=== PATIENT | female | born 1955 | race Caucasian/White ===

== ENCOUNTER 2018-10-28 12:14 | Day surgery (SDC) | payer OTHER ==
[~2018-10-28] VITALS: Ht 167.6 cm; Wt 113.7 kg
[2018-10-28 13:49] VITALS: Ht 167.6 cm; Wt 113.7 kg
[2018-10-28] MEDS ORDERED: GLUC100015 PO (14:00)
[2018-10-28] MEDS ORDERED: OMEP40CA6 PO (14:00)
[2018-10-28] MEDS ORDERED: MIRA50TA PO (14:00)
[2018-10-28] MEDS ORDERED: BENA40TA56 PO (14:00)
[2018-10-28] MEDS ORDERED: HYDR25TA6 PO (14:00)
[2018-10-28] MEDS ORDERED: GABA300C16 PO (14:00)
[2018-10-28] MEDS ORDERED: TURM500C9 PO (14:03)
[2018-10-28] MEDS ORDERED: TRA100 PO (14:03)
[2018-10-28] MEDS ORDERED: BIOT5000 PO (14:03)
[2018-10-28] MEDS ORDERED: FOLI-49 PO (14:03)
[2018-10-28] MEDS ORDERED: vit d3 PO (14:03)
[2018-10-28] MEDS ORDERED: NITR-58 PO (14:03)
[2018-10-28] MEDS ORDERED: SERT-165 PO (14:03)
[2018-10-28] MEDS ORDERED: GABA-526 PO (14:03)
[2018-10-28] MEDS ORDERED: FERR256T PO (14:03)
[2018-10-28] MEDS ORDERED: SULI150T PO (14:03)
[2018-10-28] MEDS ORDERED: PROPOFOL 60 ML ONE (14:23)
[2018-10-28] MEDS ORDERED: LIDOCAINE 2% (SDV) 5 ML INJ ONE (14:23)
--- NOTE | 2018-10-28 14:23 | PREAC ---
Date/Time of Note Date/Time of Note DATE: 10/28/18 TIME: 14:20 Anesthesia Eval and Record Evaluation Time Pre-Procedure Interview DATE: 10/28/18 TIME: 14:20 Age 63 Sex female NPO: 8 hrs Preoperative diagnosis blood in stool Planned procedure colonoscopy Past Medical History Past Medical History: Includes Cardio: HTN, Dyslipidemia Musculoskeletal: Osteoarthritis GI: GERD, Morbid obesity Surgery & Anesthesia Issues No known issue Meds Anticoagulation: No Beta Victor Hugo within 24 hr: No Reason Beta Victor Hugo not given: Pt. not on B-Victor Hugo Reported Medications Nitrofurantoin Monohyd Macrocr* (Macrobid*) 100 Mg Capsr, 100 MG PO DAILY, CAP 10/28/18 Trazodone Hcl* (Trazodone Hcl*) 100 Mg Tablet, 100 MG PO BID, #60 TAB 10/28/18 Sertraline Hcl* (Sertraline Hcl*) 100 Mg Tablet, 100 MG PO DAILY, #30 TAB 10/28/18 Gabapentin* (Gabapentin*) 600 Mg Tablet, 600 MG PO BID, #60 TAB 10/28/18 Folic Acid* (Folic Acid*) 1 Mg Tablet, 1 MG PO DAILY, TAB 10/28/18 Sulindac* (Sulindac*) 150 Mg Tablet, 200 MG PO BID, TAB 10/28/18 Biotin (Biotin) 5,000 Mcg Tab.rapdis, 5000 MCG PO DAILY 10/28/18 Ferrous Gluconate (Iron) 256 Mg Tablet, 325 MG PO DAILY, TAB 10/28/18 [vit d3] No Conflict Check, PO DAILY 10/28/18 Turmeric Root Extract (Turmeric) 500 Mg Capsule, 450 MG PO TID, CAP 10/28/18 Glucosamine Sulfate 2KCL (GLUCOSAMINE) 1,000 Mg Tablet, 3000 MG PO TID, TAB 10/28/18 Mirabegron (Myrbetriq) 50 Mg Tab.er.24h, 50 MG PO DAILY, TAB 10/28/18 Gabapentin* (Gabapentin*) 300 Mg Capsule, 300 MG PO TID, #90 CAP 10/28/18 Omeprazole* (Omeprazole*) 40 Mg Capsule.dr, 40 MG PO AC BREAKFAST, #30 CAP 10/28/18 Benazepril Hcl* (Benazepril Hcl*) 40 Mg Tablet, 40 MG PO DAILY, #30 TAB 2/22/19 Hydrochlorothiazide* (Hydrochlorothiazide*) 25 Mg Tab, 25 MG PO BID, #60 TAB 10/28/18 Meds reviewed: Yes Allergies Coded Allergies: No Known Allergy (Unverified , 10/28/18) Allergies Reviewed: Yes Labs/Studies Labs Reviewed: Reviewed by anesthesiologist test: N/A Studies: ECG Pre-procedure Exam Last vitals BP:122/56, P:78, spo2:100%, T:98,6 Airway: Adequate mouth opening, Adequate thyromental dist Mallampati: Mallampati III Teeth: Normal Lung: Normal Heart: Normal ASA Physical Status ASA physical status: 3 Emergency: None Planned Anesthetic General/MAC: MAC Pre-operative Attestations Prior to commencing anesthesia and surgery, the patient was re-evaluated, there was verification of: *The patient's identity *The results of appropriate recent lab work and preoperative vital signs *The above evaluation not changing prior to induction *Anesthetic plan, risk benefits, alternative and complications discussed with patient/family; questions answered; patient/family understands, accepts and wishes to proceed. LORAINE ISRAEL MD Oct 28, 2018 14:23
[2018-10-28 14:31] VITALS: BP 112/55; PULSE 69; RESP 15
--- NOTE | 2018-10-28 14:48 | PAC ---
Date/Time of Note Date/Time of Note DATE: 10/28/18 TIME: 14:47 Post-Anesthesia Notes Post-Anesthesia Note Activity: WNL Respiratory function: WNL Cardiovascular function: WNL Mental status: Baseline Pain reasonably controlled: Yes Hydration appropriate: Yes Nausea/Vomiting absent: Yes Comments BP:105/54, P;78, spo2:100%, T:98,8 LORAINE ISRAEL MD Oct 28, 2018 14:48
[2018-10-28] MEDS ORDERED: ONDANSETRON 4 MG INJ IV PRN (15:00)
[2018-10-28] MEDS ORDERED: FENTAnyl 50 MCG/ML VIAL IV PRN (15:00)
[2018-10-28 15:11] VITALS: BP 119/56; PULSE 70; RESP 18
== END 2018-10-28 16:47 | disposition home or self-care (01) ==
LOC: GIL 12:14
PROVIDERS: ATTEND Internal Medicine Gastroenterology
DX: Z12.11 Encounter for screening for malignant neoplasm of colon (principal); K64.8 Other hemorrhoids; I10 Essential (primary) hypertension; E78.5 Hyperlipidemia, unspecified; E66.01 Morbid (severe) obesity due to excess calories; Z68.41 Body mass index [BMI] 40.0-44.9, adult